=== PATIENT | female | born 1950 | race Caucasian/White ===

== ENCOUNTER 2023-11-20 19:52 | Emergency (ER) | payer MEDICARE, OTHER ==
[~2023-11-20] VITALS: Ht 165.1 cm; Wt 89.4 kg
[~2023-11-20 19:52] MED LIST: CLON1TAB12 PO; DIPH1TAB PO; LEVO25TA9 PO; ONDA4TAB5 PO; VENL75TA4 PO
[2023-11-20] MEDS ORDERED: MORPHINE SULFATE 4 MG/1 ML DISP.SYRIN IM ONE (20:15)
[2023-11-20] MEDS ORDERED: MORPHINE SULFATE 4 MG/1 ML DISP.SYRIN ONE (20:27)
[2023-11-20 20:58] VITALS: BP 142/78; TEMP 98; O2SAT 100
[2023-11-21] MEDS ORDERED: BISO5TAB20 PO (00:27)
[2023-11-21] MEDS ORDERED: NORT25CA PO (00:27)
[2023-11-21] MEDS ORDERED: CHOL400D8 PO (00:27)
[2023-11-21] MEDS ORDERED: EVOL140P3 SQ (14:38)
[2023-11-21] MEDS ORDERED: GABA-532 PO (14:39)
[2023-11-21] MEDS ORDERED: DUPI300S SQ (14:47)
== END 2023-11-20 20:57 | disposition home or self-care (01) ==
LOC: ER 20:00 → MERGE 20:00 → UNMERGE 20:00 → ER 20:57
DX: Z53.21 Procedure and treatment not carried out due to patient leaving prior to being seen by health care provider (principal)
CPT/HCPCS: A4606; A4663; J2270

== ENCOUNTER 2023-11-20 20:35 | Inpatient (IN) | payer MEDICARE, OTHER ==
[~2023-11-20] VITALS: Ht 162.6 cm; Wt 89.4 kg
[2023-11-20] MEDS ORDERED: MORPHINE SULFATE 4 MG/1 ML DISP.SYRIN IM ONE (20:45)
[2023-11-20] MEDS ORDERED: LIDOCAINE HCL 2% 20 ML VIAL ONE (21:50)
[2023-11-20] MEDS ORDERED: HYDROMORPHONE 1 MG/1 ML DISP.SYRIN IM ONE (22:45)
[2023-11-20] MEDS ORDERED: HYDROMORPHONE 1 MG/1 ML DISP.SYRIN ONE (23:12)
[2023-11-20] MEDS ORDERED: ONDANSETRON 4 MG/2 ML VIAL ONE (23:55)
[2023-11-21] MEDS ORDERED: ONDANSETRON ODT 4 MG TAB.RAPDIS SL ONE
[2023-11-21] MEDS ORDERED: IV NS 1000 ML 1,000 ML IV PRN (00:15)
[2023-11-21] MEDS: ENOXAPARIN SODIUM 40 MG/0.4 ML DISP.SYRIN SQ SCH ×2 (00:15→21:10)
[2023-11-21] MEDS ORDERED: ACETAMINOPHEN 325 MG TABLET PO PRN (00:15)
[2023-11-21] MEDS ORDERED: NORT25CA PO (00:27)
[2023-11-21] MEDS ORDERED: BISO5TAB20 PO (00:27)
[2023-11-21] MEDS ORDERED: CHOL400D8 PO (00:27)
[2023-11-21] MEDS ORDERED: ONDANSETRON 4 MG/2 ML VIAL IV ONE (00:30)
[2023-11-21] MEDS: MORPHINE SULFATE 2 MG/1 ML DISP.SYRIN IV PRN ×2 (03:59→09:23)
[2023-11-21 04:55] VITALS: BP 160/73; TEMP 98.5; O2SAT 94
[2023-11-21 10:40] VITALS: BP 117/74; TEMP 97.5
[2023-11-21] MEDS: HYDROCODONE/APAP 10-325 MG TABLET PO PRN (13:04)
[2023-11-21] MEDS ORDERED: ONDANSETRON 4 MG/2 ML VIAL IV PRN (13:15)
[2023-11-21] MEDS ORDERED: HYDROMORPHONE 2 MG/1 ML DISP.SYRIN IV PRN (13:15)
[2023-11-21 13:47] VITALS: BP 117/74; TEMP 97.5; O2SAT 94
[2023-11-21] MEDS ORDERED: EVOL140P3 SQ (14:38)
[2023-11-21] MEDS ORDERED: GABA-532 PO (14:39)
[2023-11-21] MEDS ORDERED: DUPI300S SQ (14:47)
[2023-11-21 16:00] VITALS: BP 108/80; TEMP 97.7; O2SAT 95
[2023-11-21] MEDS: NORTRIPTYLINE HCL 25 MG CAPSULE PO SCH (16:41)
[2023-11-21] MEDS: CLONAZEPAM 1 MG TABLET PO SCH (16:44)
[2023-11-21] MEDS: ATENOLOL 50 MG TABLET PO SCH (16:44)
[2023-11-21 20:30] VITALS: BP 137/52; TEMP 97.6; O2SAT 93
[2023-11-21] MEDS: HYDROMORPHONE 2 MG/1 ML DISP.SYRIN IV PRN ×2 (21:08→22:47)
[2023-11-22] MEDS ORDERED: HYDROMORPHONE 1 MG/1 ML DISP.SYRIN IM ONE (01:15)
[2023-11-22] MEDS: HYDROCODONE/APAP 10-325 MG TABLET PO PRN ×2 (03:51→18:22)
[2023-11-22 06:21] LABS: BASOPHILS # (AUTO) 0.1 K/UL (0.0-0.2); EOSINOPHILS # (AUTO) 0.2 K/uL (0.0-0.7); EOSINOPHILS % (AUTO) 2.3 % (0.0-7.0); HEMATOCRIT 36.1 % (31.2-41.9); HEMOGLOBIN 12.3 g/dL (10.9-14.3); LYMPHOCYTES # (AUTO) 3.5 K/uL (0.8-4.8); LYMPHOCYTES % (AUTO) 33.2 % (20.5-51.5); MEAN CORPUSCULAR HEMOGLOBIN 29.8 uug (24.7-32.8); MEAN CORPUSCULAR HGB CONC 34 g/dL (32.3-35.6); MEAN CORPUSCULAR VOLUME 87.3 fL (75.5-95.3); MONOCYTES # (AUTO) 0.5 K/uL (0.1-1.30); MONOCYTES % (AUTO) 5.1 % (0.0-11.0); NEUTROPHILS # (AUTO) 6.1 K/uL (1.8-8.9); NEUTROPHILS % (AUTO) 58.4 % (38.5-71.5); PLATELET COUNT (AUTO) 320 K/uL (179-408); RED BLOOD CELL COUNT(AUTO) 4.14 MIL/uL (3.63-4.92); RED CELL DISTRIBUTION WIDTH 13.3 % (12.3-17.7); WHITE BLOOD COUNT (AUTO) 10.5 K/uL (3.8-11.8)
[2023-11-22 06:34] VITALS: BP 139/67; TEMP 97.9; O2SAT 96
[2023-11-22 06:46] LABS: CALCIUM 8.5 mg/dL (8.5-10.1); CARBON DIOXIDE 28 mmol/L (21-32); CHLORIDE 101 mmol/L (98-107); CREATININE 0.7 mg/dL (0.6-1.3); GLUCOSE 128 mg/dL (74-106); MAGNESIUM 1.9 mg/dL (1.8-2.4); PHOSPHOROUS 3.5 mg/dL (2.5-4.9); POTASSIUM 3.8 mmol/L (3.5-5.1); SODIUM SERUM 136 mmol/L (136-145); UREA NITROGEN, BLOOD 15 mg/dL (7-18)
[2023-11-22 07:10] LABS: DIFFERENTIAL COMMENT 1
[2023-11-22] MEDS: LEVOTHYROXINE SODIUM 25 MCG TABLET PO SCH ×2 (07:28→12:32)
[2023-11-22] MEDS ORDERED: HYDROMORPHONE 1 MG/1 ML DISP.SYRIN IV PRN (07:30)
[2023-11-22] MEDS ORDERED: FENTANYL CITRATE 100 MCG/2 ML AMPUL ONE (08:08)
[2023-11-22] MEDS ORDERED: ROCURONIUM BROMIDE 50 MG/5 ML VIAL ONE (08:08)
[2023-11-22] MEDS ORDERED: FAMOTIDINE. 20 MG/2 ML VIAL IV ONE (08:08)
[2023-11-22] MEDS ORDERED: MIDAZOLAM HCL 10 MG/2 ML VIAL ONE (08:08)
[2023-11-22] MEDS ORDERED: KETAMINE HCL 500 MG/10 ML INJ ONE (08:08)
[2023-11-22] MEDS ORDERED: Medication Not On Formulary EA (Bisoprolol Fumarate 5 MG) PO SCH (09:00)
[2023-11-22] MEDS ORDERED: CHOLECALCIFEROL 10 MCG PO SCH (09:00)
[2023-11-22] MEDS ORDERED: ROPIVACAINE HCL/PF 0.5% ( 5 MG/ML ) , 20 ML VIAL ONE (09:03)
[2023-11-22] MEDS ORDERED: VANCOMYCIN 1000 MG VIAL ONE (09:03)
[2023-11-22] MEDS ORDERED: FLUMAZENIL 0.5 MG/5 ML VIAL ONE (10:03)
[2023-11-22 12:26] VITALS: BP 148/73; TEMP 98.3; O2SAT 95
[2023-11-22] MEDS ORDERED: IV D5W-0.45% NS +20 KCL 1,000 ML IV PRN (12:30)
[2023-11-22] MEDS: ATENOLOL 50 MG TABLET PO SCH ×2 (12:31→16:40)
[2023-11-22] MEDS: CLONAZEPAM 1 MG TABLET PO SCH ×2 (12:31→16:39)
[2023-11-22] MEDS: CHOLECALCIFEROL 400 UNITS TABLET PO SCH (12:31)
[2023-11-22 12:36] VITALS: BP 168/80; TEMP 98.6; O2SAT 96
[2023-11-22 13:00] VITALS: BP 144/60; TEMP 98.2; O2SAT 97
[2023-11-22] MEDS: NORTRIPTYLINE HCL 25 MG CAPSULE PO SCH ×2 (13:11→16:39)
[2023-11-22] MEDS ORDERED: HYDR-894 PO (16:22)
[2023-11-22] MEDS: CEFAZOLIN 1 G in IV DEXTROSE 5% 50 ML IV SCH (16:29)
[2023-11-22] MEDS ORDERED: hydrALAZINE HCL 25 MG TABLET PO PRN (16:30)
[2023-11-22] MEDS: GABAPENTIN 100 MG CAPSULE PO SCH (17:48)
[2023-11-22 19:55] VITALS: BP 131/59; TEMP 98.6; O2SAT 95
[2023-11-22] MEDS: MORPHINE SULFATE 4 MG/1 ML DISP.SYRIN IV PRN (20:40)
[2023-11-23] MEDS: CEFAZOLIN 1 G in IV DEXTROSE 5% 50 ML IV SCH (00:10)
[2023-11-23] MEDS: MORPHINE SULFATE 4 MG/1 ML DISP.SYRIN IV PRN ×4 (00:11→20:42)
[2023-11-23 04:07] VITALS: BP 149/74; TEMP 98; O2SAT 95
[2023-11-23] MEDS: HYDROCODONE/APAP 10-325 MG TABLET PO PRN ×3 (05:53→17:18)
[2023-11-23] MEDS: LEVOTHYROXINE SODIUM 25 MCG TABLET PO SCH (06:08)
[2023-11-23 07:26] LABS: BASOPHILS # (AUTO) 0.1 K/UL (0.0-0.2); BASOPHILS % (AUTO) 0.5 % (0.0-2.0); EOSINOPHILS # (AUTO) 0.1 K/uL (0.0-0.7); EOSINOPHILS % (AUTO) 0.8 % (0.0-7.0); HEMATOCRIT 36.3 % (31.2-41.9); LYMPHOCYTES # (AUTO) 3.9 K/uL (0.8-4.8); MEAN CORPUSCULAR HEMOGLOBIN 29.6 uug (24.7-32.8); MEAN CORPUSCULAR HGB CONC 33 g/dL (32.3-35.6); MEAN CORPUSCULAR VOLUME 89.7 fL (75.5-95.3); MONOCYTES # (AUTO) 1.2 K/uL (0.1-1.30); MONOCYTES % (AUTO) 8.5 % (0.0-11.0); NEUTROPHILS # (AUTO) 8.7 K/uL (1.8-8.9); NEUTROPHILS % (AUTO) 62.2 % (38.5-71.5); PLATELET COUNT (AUTO) 262 K/uL (179-408); RED BLOOD CELL COUNT(AUTO) 4.05 MIL/uL (3.63-4.92); RED CELL DISTRIBUTION WIDTH 13.2 % (12.3-17.7)
[2023-11-23 07:37] LABS: DIFFERENTIAL COMMENT 1
[2023-11-23 07:48] LABS: CALCIUM 8.1 mg/dL (8.5-10.1); CARBON DIOXIDE 25 mmol/L (21-32); CHLORIDE 100 mmol/L (98-107); CREATININE 0.6 mg/dL (0.6-1.3); GLUCOSE 122 mg/dL (74-106); SODIUM SERUM 134 mmol/L (136-145); UREA NITROGEN, BLOOD 13 mg/dL (7-18)
[2023-11-23 08:30] VITALS: BP 164/80; TEMP 98.3; O2SAT 94
[2023-11-23] MEDS ORDERED: LACTULOSE 20 G/30 ML LIQUID UDC PO ONE (08:45)
[2023-11-23] MEDS: CHOLECALCIFEROL 400 UNITS TABLET PO SCH (08:59)
[2023-11-23] MEDS: CLONAZEPAM 1 MG TABLET PO SCH ×3 (08:59→17:17)
[2023-11-23] MEDS: GABAPENTIN 100 MG CAPSULE PO SCH ×3 (08:59→17:18)
[2023-11-23] MEDS: NORTRIPTYLINE HCL 25 MG CAPSULE PO SCH ×2 (08:59→17:18)
[2023-11-23] MEDS: ATENOLOL 50 MG TABLET PO SCH ×2 (08:59→17:19)
[2023-11-23] MEDS ORDERED: ENOXAPARIN SODIUM 40 MG/0.4 ML DISP.SYRIN SQ SCH (09:00)
[2023-11-23] MEDS: ENOXAPARIN SODIUM 40 MG/0.4 ML DISP.SYRIN SQ SCH (10:41)
[2023-11-23 12:12] VITALS: BP 151/92; TEMP 98; O2SAT 94
[2023-11-23 17:00] VITALS: BP 171/82; TEMP 97.8; O2SAT 94
[2023-11-23] MEDS ORDERED: SENNOSIDES 1 TABLET PO SCH (21:00)
[2023-11-24] MEDS: HYDROCODONE/APAP 10-325 MG TABLET PO PRN ×3 (00:01→12:24)
[2023-11-24] MEDS: LEVOTHYROXINE SODIUM 25 MCG TABLET PO SCH (06:50)
[2023-11-24 07:09] LABS: BASOPHILS # (AUTO) 0.1 K/UL (0.0-0.2); BASOPHILS % (AUTO) 0.6 % (0.0-2.0); EOSINOPHILS # (AUTO) 0.3 K/uL (0.0-0.7); EOSINOPHILS % (AUTO) 2.6 % (0.0-7.0); HEMATOCRIT 36.6 % (31.2-41.9); HEMOGLOBIN 12.4 g/dL (10.9-14.3); LYMPHOCYTES # (AUTO) 3.6 K/uL (0.8-4.8); LYMPHOCYTES % (AUTO) 28.7 % (20.5-51.5); MEAN CORPUSCULAR HEMOGLOBIN 29.7 uug (24.7-32.8); MEAN CORPUSCULAR HGB CONC 34 g/dL (32.3-35.6); MEAN CORPUSCULAR VOLUME 87.9 fL (75.5-95.3); MONOCYTES # (AUTO) 0.8 K/uL (0.1-1.30); MONOCYTES % (AUTO) 6.1 % (0.0-11.0); NEUTROPHILS # (AUTO) 7.8 K/uL (1.8-8.9); PLATELET COUNT (AUTO) 348 K/uL (179-408); RED BLOOD CELL COUNT(AUTO) 4.16 MIL/uL (3.63-4.92); RED CELL DISTRIBUTION WIDTH 13.3 % (12.3-17.7); WHITE BLOOD COUNT (AUTO) 12.6 K/uL (3.8-11.8)
[2023-11-24 07:17] LABS: CARBON DIOXIDE 30 mmol/L (21-32); CHLORIDE 97 mmol/L (98-107); CREATININE 0.6 mg/dL (0.6-1.3); GLUCOSE 164 mg/dL (74-106); SODIUM SERUM 133 mmol/L (136-145); UREA NITROGEN, BLOOD 10 mg/dL (7-18)
[2023-11-24 07:32] LABS: POTASSIUM 3.5 mmol/L (3.5-5.1)
[2023-11-24 07:43] LABS: DIFFERENTIAL COMMENT 1
[2023-11-24] MEDS ORDERED: HYDR-3972 PO (08:34)
[2023-11-24] MEDS ORDERED: ONDA4TAB5 PO (08:34)
[2023-11-24] MEDS ORDERED: DOCU-141 PO (08:34)
[2023-11-24 08:52] VITALS: BP 143/63
[2023-11-24] MEDS: ATENOLOL 50 MG TABLET PO SCH (08:52)
[2023-11-24] MEDS: NORTRIPTYLINE HCL 25 MG CAPSULE PO SCH (08:52)
[2023-11-24] MEDS: GABAPENTIN 100 MG CAPSULE PO SCH ×2 (08:52→12:24)
[2023-11-24] MEDS: CHOLECALCIFEROL 400 UNITS TABLET PO SCH (08:52)
[2023-11-24] MEDS: CLONAZEPAM 1 MG TABLET PO SCH ×2 (08:52→12:24)
[2023-11-24] MEDS: ENOXAPARIN SODIUM 40 MG/0.4 ML DISP.SYRIN SQ SCH (08:54)
[2023-11-24] MEDS ORDERED: PSYLLIUM SEED PACKET PO ONE (09:15)
== END 2023-11-24 14:20 | disposition home health service (06) | DRG 512 ==
LOC: ER 20:42 → MEDSURG3 11-21 01:11
PROVIDERS: ADMIT Nurse Practitioner Acute Care; ATTEND Nurse Practitioner Acute Care
PROC: 0PSH04Z Reposition Right Radius with Internal Fixation Device, Open Approach (ICD-10-PCS; principal; 2023-11-22)
PROC: 02HV33Z Insertion of Infusion Device into Superior Vena Cava, Percutaneous Approach (ICD-10-PCS; 2023-11-22)
DX: S52.591A Other fractures of lower end of right radius, initial encounter for closed fracture (principal); E89.0 Postprocedural hypothyroidism; W10.8XXA Fall (on) (from) other stairs and steps, initial encounter; Y92.018 Other place in single-family (private) house as the place of occurrence of the external cause; Z68.33 Body mass index [BMI] 33.0-33.9, adult; E66.9 Obesity, unspecified; E78.5 Hyperlipidemia, unspecified; K31.84 Gastroparesis; I10 Essential (primary) hypertension; F43.10 Post-traumatic stress disorder, unspecified; R29.6 Repeated falls; F41.9 Anxiety disorder, unspecified; Z91.012 Allergy to eggs; Z79.890 Hormone replacement therapy; Z90.710 Acquired absence of both cervix and uterus
CPT/HCPCS: 36415; 71045; 73110; 83735; 84100; 85025; 85730; 93005; 93307; A4663; G0378; J0690; J1170; J1650; J2250; J2270; J2405; J2795; J3010; J3370; J3490; J7040